=== PATIENT | female | born 1955 | race Caucasian/White ===

== ENCOUNTER 2021-06-03 12:14 | Observation (INO) | payer OTHER ==
--- OUTSIDE RECORDS SUMMARY | 2021-06-03 12:17 | XMS REPORT | Continuity of Care Document ---
:1955 Author Organization Formerly [facility] t Address [address] [place] [address] Dr. Ware [address] [place] [id number] Care Team Providers Name Role Phone Unavailable Unavailable Unavailable Problems This patient has no known problems. Allergies, Adverse Reactions, Alerts This patient has no known allergies or adverse reactions. Medications This patient has no known medications. Procedures This patient has no known procedures. Results Test Description Test Time Test Comments Results Result [facility] e Comments Low dose CT lung 2018-06-18 CLINICAL INDICATION: screening 13:50:27 Z72.0 Tobacco useMODALITY: [employer] [address] (Iterative dose reduction technique is used).TECHNIQUE: Unenhanced helical scans through the chest were performed.Computed Tomography Dose Index (CDTI): 6.5 mGy.IMPRESSION:1. Subpleural nodule of the right lung on image 20 measuring 5 mm. In a high risk patient an optional 12-month follow-up study may be obtained based on Fleischner Society criteria.2. Calcified right hilar lymph nodes and calcified granuloma of the right lower lobe as well as the lingula consistent with prior granulomatous disease.FINDINGS:COMPARI SON: NoneCalcified granuloma of the right lower lung. Tiny calcified granuloma of the lingula on image 55. Subpleural nodule measuring 5 mm of the right lung on image 20. The remainder of the lungs are clear.There is no pleural effusion.There is no evidence of suspicious mediastinal, hilar or axillary lymphadenopathy. Atheromatous calcification of the aorta and coronary vessels. Calcified lymph nodes in the right hilumThe thyroid is unremarkable.Mild degenerative changes of the skeleton.PQRS 436: [id number] (For official use only.) Mammo Digital 2018-06-18 CLINICAL INDICATION: Mammography 12:37:17 Z12.39 Encounter for Screening [facility] screening for malignant neoplasm of breastTECHNIQUE: Digital acquisition of the breasts is performed on the ACR accredited Full Field Digital Mammography Unit. Computer Assisted Detection (CAD) is then accomplished using [employer]. FINDINGS:COMPARISON STUDY: There are no prior mammographic studies available for comparison. There are scattered fibroglandular tissues in both breasts.No dominant mass, skin thickening, architectural distortion or suspicious microcalcifications are noted. IMPRESSION:No evidence of malignancy. RECOMMENDATION: Follow up screening mammogram.Category: BIRADS 1 - Negative. For internal use only. N:12
--- NOTE | 2021-06-03 13:59 | RAD REPORT ---
EXAM DESCRIPTION: CT - Head Brain Wo Cont - 06/03/2021 1:51 pm CLINICAL HISTORY: Confusion;Dizziness COMPARISON: No comparisons TECHNIQUE: All CT scans are performed using dose optimization technique as appropriate and may inclu de automated exposure control or mA/KV adjustment according to patient size. FINDINGS: No intracranial hemorrhage, hydrocephalus or extra-axial fluid collection.No areas of brai n edema or evidence of midline shift. The paranasal sinuses and mastoids are clear. The calvarium is intact. IMPRESSION: No acute intracranial abnormality.
--- NOTE | 2021-06-03 14:23 | RAD REPORT ---
EXAM DESCRIPTION: RAD - Chest Single View - 06/03/2021 2:06 pm CLINICAL HISTORY: PALPITATIONS COMPARISON: No comparisons FINDINGS: No evidence of edema or pneumonia. The heart size is within normal limits.No acute osseous abnormality. No significant pleural effusions or pneumothorax. IMPRESSION: No acute cardiopulmonary disease.
[2021-06-03 15:29] LABS: Absolute Lymphocytes (CBC) 2.1 K/uL (0.7-4.9); Basophils % 0.6 % (0-1.3); Hematocrit 36.1 % (36.0-45.0); Lymphocytes % 27.9 % (15.3-44.8); MPV 7.3 fL (7.6-11.3); RBC Red Blood Cell Count 3.84 M/uL (3.86-4.86)
[2021-06-03 15:34] LABS: Protime INR 0.89
[2021-06-03 15:56] LABS: ALT/SGPT 52 U/L (12-78); AST/SGOT 26 U/L (15-37); Albumin 4.3 g/dL (3.4-5.0); Alkaline Phosphatase 120 U/L (45-117); BUN Blood Urea Nitrogen 10 mg/dL (7-18); Bicarbonate 26 mmol/L (21-32); Bilirubin Direct 0.1 mg/dL (0-0.2); Bilirubin Total 0.4 mg/dL (0.2-1.0); Glucose Level 91 mg/dL (74-106); Magnesium 1.9 mg/dL (1.8-2.4); NT PRO-BNP 100 pg/mL (<125); Potassium 4.1 mmol/L (3.5-5.1); Protein, Total 7.8 g/dL (6.4-8.2); Sodium Level 124 mmol/L (136-145); Troponin (Emerg Dept Use Only) 0.12 ng/mL (0.0-0.045)
--- NOTE | 2021-06-03 17:30 | RAD REPORT ---
EXAM DESCRIPTION: MRI - MRA Neck W/Wo Cont - 06/03/2021 5:21 pm CLINICAL HISTORY: Expressive aphasia; Dizziness COMPARISON: No comparisons FINDINGS: The carotid systems are patent bilaterally. The vertebral arteries are patent. No hemodyna mically significant stenosis identified. No evidence of avascular dissection. IMPRESSION: No hemodynamically significant stenosis within the neck.
--- NOTE | 2021-06-03 17:35 | RAD REPORT ---
EXAM DESCRIPTION: MRI - Brain W/Wo Cont - 06/03/2021 5:21 pm CLINICAL HISTORY: Expressive aphasia; Dizziness COMPARISON: MRA Head Wo Cont dated 06/03/2021 FINDINGS: No acute intracranial hemorrhage. No mass effect or midline shift. No diffusion restrictio n is identified to suggest acute acute infarct. No significant white matter disease identified. No ab normal enhancement. IMPRESSION: No acute intracranial abnormality. Specifically, no evidence of acute infarct.
--- NOTE | 2021-06-03 17:35 | RAD REPORT ---
EXAM DESCRIPTION: MRI - MRA Head Wo Cont - 06/03/2021 5:21 pm CLINICAL HISTORY: Expressive aphasia;Dizziness COMPARISON: No comparisons FINDINGS: The anterior circulation is intact. No aneurysm, occlusion or stenosis. The posterior circ ulation is intact as well. The vertebral arteries are codominant. IMPRESSION: Unremarkable MRA of the head.
--- NOTE | 2021-06-03 17:56 | EDPHYS ---
Physician Documentation [facility] Name: Phuong Mcfarlane Age: 66 yrs Sex: Female : 1955 Arrival Date: 06/03/2021 Time: 12:16 Bed 11 Private MD: ED Physician Leonardo Jo HPI: 06/03 13:51 This 66 yrs old Female presents to ER via Ambulatory with complaints of High pm1 Blood Pressure, Confusion-Memory Issue. 13:51 The patient presents to the emergency department with Dizziness and feeling difficulty pm1 expressing herself, forgetting words. Onset: The symptoms/episode began/occurred Yesterday at 1600 and today at 1100. Context: occurred at home, occurred while the patient was cooking today. Associated signs and symptoms: Pertinent positives: Palpitations, Pertinent negatives: Chest pain and shortness of breath. Severity of symptoms: in the emergency department the symptoms have resolved Pain is currently a 0 / 10. Patient's baseline: Neuro: alert and fully oriented, Motor: no deficits, Ambulation: walks without assistance, Speech: normal. Current symptoms: Currently, the patient is not experiencing any symptoms. The patient has not experienced similar symptoms in the past. The patient has not recently seen a physician. Historical: - Allergies: 13:36 Lamisil; ss - Home Meds: 13:36 metoprolol tartrate 25 mg Oral tab 1 tab once daily [Active]; lisinopril 10 mg Oral tab ss 1 tab once daily [Active]; - PMHx: 13:36 HTN; ss - Immunization history:: Adult Immunizations up to date, Client reports receiving the 2nd dose of the Covid vaccine, Date received: December 16, 2020. - Social history:: Smoking status: Patient reports the use of cigarette tobacco products, smokes one pack cigarettes per day. ROS: 13:51 Constitutional: Negative for fever, chills, and weight loss, Skin: Negative for injury, pm1 rash, and discoloration. 13:51 ENT: Negative for injury, pain, and discharge, Neck: Negative for injury, pain, and swelling, Respiratory: Negative for shortness of breath, cough, wheezing, and pleuritic chest pain. 13:51 Abdomen/GI: Negative for abdominal pain, nausea, vomiting, diarrhea, and constipation, Back: Negative for injury and pain, MS/Extremity: Negative for injury and deformity. 13:51 Eyes: Positive for Difficulty with focusing yesterday. No visual disturbances today, Negative for pain. 13:51 Cardiovascular: Positive for palpitations, Today, Negative for chest pain. 13:51 Neuro: Positive for dizziness, Forgetfulness, Negative for headache, numbness, tingling, weakness. 13:51 All other systems are negative. Exam: 13:51 Constitutional: This is a well developed, well nourished patient who is awake, alert, pm1 and in no acute distress. Head/Face: Normocephalic, atraumatic. 13:51 Skin: Warm, dry with normal turgor. Normal color with no rashes, no lesions, and no evidence of cellulitis. MS/ Extremity: Pulses equal, no cyanosis. Neurovascular intact. Full, normal range of motion. 13:51 Eyes: Exam is negative for acute changes, Extraocular movements: intact throughout, Conjunctiva: no acute changes, no injection, Sclera: no acute changes, icterus, is not appreciated. 13:51 ENT: Exam is negative for acute changes, Mouth: no acute changes, Lips: normal, Oral mucosa: normal, pink and intact, moist. 13:51 Cardiovascular: Rate: normal, Rhythm: regular, Pulses: no pulse deficits are appreciated. 13:51 Respiratory: Exam negative for acute changes, respiratory distress, shortness of breath, Breath sounds: are clear throughout. 13:51 Abdomen/GI: Exam negative for acute changes, Palpation: abdomen is soft and non-tender, in all quadrants. 13:51 Neuro: Exam negative for acute changes, Orientation: is normal, Mentation: is normal, Cranial nerves: CN II- XII are normal as tested, Cerebellar function: normal finger to nose testing, heel to hargrove testing is normal, Motor: is normal, moves all fours, Sensation: is normal, no obvious gross deficits. Vital Signs: 13:30 BP 195 / 73; Pulse 73; Resp 15; Temp 98.3; Pulse Ox 100% on R/A; Weight 56.7 kg; Height iw 0 ft. 1 in. (2.54 cm); Pain 0/10; 18:11 BP 206 / 97; Pulse 79; Resp 18; Pulse Ox 99% on R/A; ss 19:30 BP 171 / 62; Pulse 68; Resp 18; Pulse Ox 98% ; em 13:30 Body Mass Index 83754.50 (56.70 kg, 2.54 cm) iw MDM: 14:19 Patient medically screened. pm1 17:53 Data reviewed: vital signs. Data interpreted: Pulse oximetry: on room air is 100 %. pm1 Interpretation: normal. Counseling: I had a detailed discussion with the patient and/or guardian regarding: the historical points, exam findings, and any diagnostic results supporting the discharge/admit diagnosis, lab results, radiology results, the need for further work-up and treatment in the hospital. 17:55 ED course: Patient MRI results reviewed. Patient will now be given Lovenox. pm1 18:07 Physician consultation: Martell KEN was contacted at 18:07, regarding admission, pm1 patient's condition, and will see patient. 06/03 13:42 Order name: Basic Metabolic Panel; Complete Time: 15:59 pm1 06/03 13:42 Order name: CBC with Diff; Complete Time: 15:56 pm1 06/03 13:42 Order name: LFT's; Complete Time: 15:59 pm1 06/03 13:42 Order name: Magnesium; Complete Time: 15:59 pm1 06/03 13:42 Order name: NT PRO-BNP; Complete Time: 15:59 pm1 06/03 13:42 Order name: PT-INR; Complete Time: 15:56 pm1 06/03 13:42 Order name: CT Head Brain wo Cont; Complete Time: 14:17 pm1 06/03 13:42 Order name: Troponin (emerg Dept Use Only); Complete Time: 15:59 pm1 06/03 16:00 Order name: COVID-19 : Document "Date of Symptom Onset" if Symptomatic. pm1 06/03 19:34 Order name: COVID-19 : Document "Date of Symptom Onset" if Symptomatic. bb 06/03 19:40 Order name: CORONAVIRUS ED[facility] 06/03 21:46 Order name: SARS-COV-2 RT PCR [facility] 06/03 22:18 Order name: Osmolality, Serum ED[facility] 06/04 01:37 Order name: Troponin I ED[facility] 06/03 13:42 Order name: XRAY Chest (1 view); Complete Time: 14:28 pm1 06/03 13:42 Order name: EKG; Complete Time: 13:43 pm1 06/03 13:42 Order name: Cardiac monitoring; Complete Time: 19:12 pm1 06/03 13:42 Order name: EKG - Nurse/Tech; Complete Time: 19:11 pm1 06/03 13:42 Order name: IV Saline Lock; Complete Time: 15:25 pm1 06/03 13:42 Order name: Labs collected and sent; Complete Time: 15:25 pm1 06/03 14:08 Order name: MRA Head Wo Cont; Complete Time: 17:44 EDMS 06/03 14:33 Order name: MRA Neck W/Wo Cont; Complete Time: 17:33 EDMS 06/03 14:33 Order name: Brain W/Wo Cont; Complete Time: 17:44 EDMS 06/03 13:42 Order name: O2 Per Protocol; Complete Time: 19:11 pm1 06/03 13:42 Order name: O2 Sat Monitoring; Complete Time: 19:11 pm1 Administered Medications: 18:47 Drug: Lovenox (enoxaparin) 1 mg/kg Route: Sub-Q; Site: abdomen; ap3 19:38 Follow up: Response: No adverse reaction em 18:48 Drug: Aspirin 325 mg Route: PO; ap3 19:38 Follow up: Response: No adverse reaction em 19:32 Drug: Lopressor (metoprolol TARTRATE)) 25 mg Route: PO; em 19:32 Drug: Lopressor (metoprolol) 2.5 mg Route: IVP; Site: right antecubital; em 19:37 Not Given (Physician Discretion): Lopressor (metoprolol) 5 mg IVP once; Hold for SBP em <100 or HR <60. Disposition Summary: 06/04/21 01:59 Transfer Ordered Transfer Location: Other Acute Care Facility cp Reason: Higher level of care cp Condition: Stable(06/04/21 01:59) cp Problem: new(06/04/21 01:59) cp Symptoms: have improved(06/04/21 01:59) cp Accepting Physician: DR Brad Arriaza(06/04/21 04:57) mw Diagnosis - Non ST elevation CT cp - Palpitations(06/04/21 01:59) cp Forms: - Medication Reconciliation Form cp - SBAR form cp Addendum: 06/06/2021 07:11 Co-signature as Attending Physician, Leonardo Jo MD I agree with the assessment and k dr plan of care. Signatures: Dispatcher [employer] EDWV Karen Ovalle, RN RN Leonardo Bourne MD MD [facility] Roger Mackenzie, HONG RN em Isabela Gonzales RN RN ss Larisa, Cirilo, PA PA cp Marcus Jane, BREAD OVEN OPERATOR BREAD OVEN OPERATOR pm1 Tayler Garcia RN RN ap3 Corrections: (The following items were deleted from the chart) 06/03 14:08 13:47 MR STROKE PROTOCOL+MRI.RAD.BRZ ordered. EDWV EDMS 06/04 01:56 06/03 17:55 Inpatient Admission pm1 cp 06/04 01:56 06/03 17:55 Martell Oh pm1 cp 06/04 01:56 06/03 17:55 Telemetry/MedSurg (Inpatient) pm1 cp 06/04 01:56 06/03 17:55 Stable pm1 cp 06/04 01:56 06/03 17:55 new pm1 cp 06/04 01:56 06/03 17:55 have improved pm1 cp 06/04 01:56 06/03 17:55 Standard pm1 cp 06/04 01:56 06/03 17:55 pm1 cp 06/04 01:56 06/03 17:55 Palpitations pm1 cp 06/04 01:56 06/03 17:55 NSTEMI pm1 cp 06/04 04:57 01:59 DR Brad Arriaza [facility]
--- NOTE | 2021-06-03 17:56 | ER ---
Nurse's Notes [facility] Name: Phuong Mcfarlane Age: 66 yrs Sex: Female : 1955 Arrival Date: 06/03/2021 Time: 12:16 Bed 11 Private MD: Diagnosis: Non ST elevation [place];Palpitations Presentation: 06/03 13:30 Chief complaint: Patient states: Pt reports difficulty focusing eyes yesterday, today ss had brief episode of unable to think clearly and remember friend's name around 11am. Reports she felt like her memory was gone, sxs self resolved after 1 hr. C/O lightheadedness, denies LUNA. Speech is clear, hand program counselor strong equal bilat. [place] steady. Coronavirus screen: Client denies travel out of the [place] in the last 14 days. At this time, the client does not indicate any symptoms associated with coronavirus-19. Ebola Screen: Patient negative for fever greater than or equal to 101.5 degrees Fahrenheit, and additional compatible Ebola Virus Disease symptoms Patient denies exposure to infectious person. Patient denies travel to an Ebola-affected area in the 21 days before illness onset. Initial Sepsis Screen: Does the patient meet any 2 criteria? No. Patient's initial sepsis screen is negative. Does the patient have a suspected source of infection? No. Patient's initial sepsis screen is negative. Risk Assessment: Do you want to hurt yourself or someone else? Patient reports no desire to harm self or others. Onset of symptoms was June 02, 2021 at 16:00. 13:30 Method Of Arrival: Ambulatory ss 13:30 Acuity: LICHA 3 ss Triage Assessment: 13:36 General: Appears in no apparent distress. Behavior is calm, cooperative, appropriate ss for age. Pain: Denies pain. Neuro: Level of Consciousness is awake, alert, obeys commands, Oriented to person, place, time, situation, Editor Managing Director are equal bilaterally Moves all extremities. Gait is steady, Speech is normal, Facial symmetry appears normal. Cardiovascular: No deficits noted. Respiratory: No deficits noted. Derm: No deficits noted. Historical: - Allergies: 13:36 Lamisil; ss - Home Meds: 13:36 metoprolol tartrate 25 mg Oral tab 1 tab once daily [Active]; lisinopril 10 mg Oral tab ss 1 tab once daily [Active]; - PMHx: 13:36 HTN; ss - Immunization history:: Adult Immunizations up to date, Client reports receiving the 2nd dose of the Covid vaccine, Date received: December 16, 2020. - Social history:: Smoking status: Patient reports the use of cigarette tobacco products, smokes one pack cigarettes per day. Screenin:30 Abuse screen: Denies threats or abuse. Nutritional screening: No deficits noted. em Tuberculosis screening: No symptoms or risk factors identified. Fall Risk None identified. Vital Signs: 13:30 BP 195 / 73; Pulse 73; Resp 15; Temp 98.3; Pulse Ox 100% on R/A; Weight 56.7 kg; Height iw 0 ft. 1 in. (2.54 cm); Pain 0/10; 18:11 BP 206 / 97; Pulse 79; Resp 18; Pulse Ox 99% on R/A; ss 19:30 BP 171 / 62; Pulse 68; Resp 18; Pulse Ox 98% ; em 13:30 Body Mass Index 57638.50 (56.70 kg, 2.54 cm) iw ED Course: 12:16 Patient arrived in ED. ds1 13:36 Triage completed. ss 13:36 Arm band placed on right wrist. ss 13:41 Marcus Jane NP is PHCP. pm1 13:41 Leonardo Jo MD is Attending Physician. pm1 13:51 CT Head Brain wo Cont In Process Unspecified. EDMS 14:06 XRAY Chest (1 view) In Process Unspecified. EDMS 15:25 Inserted saline lock: 20 gauge in right antecubital area, using aseptic technique. ap3 Blood collected. 17:20 MRA Head Wo Cont In Process Unspecified. EDMS 17:20 MRA Neck W/Wo Cont In Process Unspecified. EDMS 17:20 Brain W/Wo Cont In Process Unspecified. EDMS 17:53 Martell Oh PA is Hospitalizing Provider. pm1 19:11 Roger Mackenzie, RN is Primary Nurse. em 19:30 No provider procedures requiring assistance completed. Patient did not have IV access em during this emergency room visit. Administered Medications: 18:47 Drug: Lovenox (enoxaparin) 1 mg/kg Route: Sub-Q; Site: abdomen; ap3 19:38 Follow up: Response: No adverse reaction em 18:48 Drug: Aspirin 325 mg Route: PO; ap3 19:38 Follow up: Response: No adverse reaction em 19:32 Drug: Lopressor (metoprolol TARTRATE)) 25 mg Route: PO; em 19:32 Drug: Lopressor (metoprolol) 2.5 mg Route: IVP; Site: right antecubital; em 19:37 Not Given (Physician Discretion): Lopressor (metoprolol) 5 mg IVP once; Hold for SBP em <100 or HR <60. Outcome: 17:55 Decision to Hospitalize by Provider. pm1 06/04 01:59 ER care complete, transfer ordered by . 04:57 Patient left the ED. mw Signatures: Dispatcher [employer] Karen Tierney RN RN Roger Mackenzie RN RN Calli Ocampo ds1 Jeane Woo RN RN Isabela Gonzales RN RN ss Cirilo Peres PA PA cp Marinas, Patrick, LOADER OPERATOR LOADER OPERATOR pm1 Tayler Garcia RN RN ap3 Corrections: (The following items were deleted from the chart) 06/03 18:06 13:30 BP 195 / ???; Pulse 73bpm; Resp 15bpm; Pulse Ox 100% RA; Temp 98.3F; 56.7 kg; iw Height 0 ft. 1 in.; BMI: 3543; Pain 0/10; ss
[2021-06-03] MEDS ORDERED: ASPIRIN 325 MG TAB ONE (19:05)
[2021-06-03] MEDS ORDERED: ENOXAPARIN 60 MG/0.6 ML SQ ONE (19:05)
[2021-06-03] MEDS ORDERED: ENOXAPARIN 100 MG/ML SYR SQ SCH (19:39)
[2021-06-03] MEDS ORDERED: ASPIRIN 81 MG CHEWABLE TABLET PO ONE (19:39)
[2021-06-03] MEDS ORDERED: ONDANSETRON 4 MG/2 ML VIAL IV PRN (19:39)
[2021-06-03] MEDS ORDERED: HYDRALAZINE HCL 20 MG/ML VIAL IV PRN (19:39)
[2021-06-03] MEDS ORDERED: ACETAMINOPHEN 500 MG TAB PO PRN (19:39)
[2021-06-03] MEDS ORDERED: METOPROLOL TAR 25 MG TAB ONE (19:40)
[2021-06-03] MEDS ORDERED: METOPROLOL TARTRATE 5 MG/5 ML INJ IV ONE (19:40)
[2021-06-03] MEDS ORDERED: lisinopriL 10 MG TAB PO SCH (21:00)
[2021-06-03] MEDS ORDERED: ATORVASTATIN 40 MG TAB PO SCH (21:00)
--- NOTE | 2021-06-03 21:16 | P.HP ---
Certification for Inpatient Patient admitted to: Observation With expected LOS: <2 Midnights Patient will require the following post-hospital care: None Practitioner: I am a practitioner with admitting privileges, knowledge of patient current condition, hospital course, and medical plan of care. Services: Services provided to patient in accordance with Admission requirements found in Title 42 Section 412.3 of the Code of Federal Regulations Patient History Date of Service: 06/03/21 Reason for admission: hypertensive urgency History of Present Illness: Ms. Mcfarlane is a 66 yo F with HTN who presents with an episode of confusion. She says she as in the kitchen when she began to have word finding difficulty, trouble focusing, and felt dizzy and off balance. She says she also felt palpitations and nausea. She has had similar episodes in the past. BP was 200/100 on arrival. Na 124, Cl 91, trop 0.12. Smokes 1/2 ppd and drinks 3-4 glasses of wine daily. CT head and MRI brain without acute findings. CXR wnl. Allergies terbinafine [From Lamisil] Allergy (Verified 06/03/21 19:32) Rash Home Medications: Lisinopril [Zestril] 10 mg PO DAILY 06/03/21 Metoprolol Succinate 25 mg PO DAILY 06/03/21 - Past Medical/Surgical History -: HTN -: tubal ligation -: oral surgery - Family History Mother -: Heart disease, Lung disease Father -: Heart disease - Social History Smoking Status: Heavy Tobacco smoker (>10 cigarettes/day) Smoking therapy provided: Yes Patient receptive to therapy: No Alcohol use: Yes CD- Drugs: No Caffeine use: Yes Place of Residence: Home Review of Systems 10-point ROS is otherwise unremarkable Cardiovascular: Palpitations Neurological: Confusion Physical Examination - Physical Exam General: Alert, In no apparent distress HEENT: Atraumatic, PERRLA, Mucous membr. moist/pink, EOMI, Sclerae nonicteric Neck: Supple, 2+ carotid pulse no bruit, No LAD, Without JVD or thyroid abnormality Respiratory: Clear to auscultation bilaterally, Normal air movement Cardiovascular: Regular rate/rhythm, Normal S1 S2 Gastrointestinal: Normal bowel sounds, No tenderness Musculoskeletal: No clubbing Integumentary: No rashes Neurological: Normal gait, Normal speech, Normal strength at 5/5 x4 extr, Normal tone, Normal affect Lymphatics: No axilla or inguinal lymphadenopathy - Studies Laboratory Data (last 24 hrs) 06/03/21 15:20: PT 10.2, INR 0.89 06/03/21 15:20: WBC 7.60, Hgb 12.7, Hct 36.1, Plt Count 271 06/03/21 15:20: Sodium 124 L, Potassium 4.1, BUN 10, Creatinine 0.63, Glucose 91, Magnesium 1.9, Total Bilirubin 0.4, AST 26, ALT 52, Alkaline Phosphatase 120 H Assessment and Plan - Problems (Diagnosis) (1) HTN (hypertension) Current Visit: Yes Status: Chronic Qualifiers: Hypertension type: primary hypertension Qualified Code(s): I10 - Essential (primary) hypertension (2) Elevated troponin Current Visit: Yes Status: Acute (3) Hyponatremia Current Visit: Yes Status: Chronic - Plan cardiology consulted, on telemetry repeat EKG in the AM, trend troponin BP improving, reconcile and continue home medications, PRN IV hydralazine thyroid and lipid panel pending sodium workup pending, levels have been low for the past 6 months according to the patient daily ASA, statin full dose lovenox given in ED smoking cessation counseling Discharge Plan: Home Plan to discharge in: 24 Hours - Advance Directives Does patient have a Living Will: No Does patient have a Durable POA for Healthcare: No - Code Status/Comfort Care Code Status Assessed: Yes (full code ) Critical Care: No Time Spent Managing Pts Care (In Minutes): 70
[2021-06-03 21:46] VITALS: BMI 21.4
[2021-06-03] MEDS ORDERED: ATORVASTATIN 20 MG TAB ONE (23:00)
[2021-06-04 00:02] VITALS: BP 148/85; TEMP 98.2
[2021-06-04 00:30] VITALS: O2SAT 98
--- NOTE | 2021-06-04 04:45 | P.DS ---
Admission Date: 06/03/21 Discharge Date: 06/04/21 Disposition: TRANSFER TO [facility] Discharge Condition: GOOD Reason for Admission: hypertensive urgency - Problems (1) HTN (hypertension) Current Visit: Yes Status: Chronic Qualifiers: Hypertension type: primary hypertension Qualified Code(s): I10 - Essential (primary) hypertension (2) Elevated troponin Current Visit: Yes Status: Acute (3) Hyponatremia Current Visit: Yes Status: Chronic Brief History of Present Illness: Ms. Mcfarlane is a 66 yo F with HTN who presents with an episode of confusion. She says she as in the kitchen when she began to have word finding difficulty, trouble focusing, and felt dizzy and off balance. She says she also felt palpitations and nausea. She has had similar episodes in the past. BP was 200/100 on arrival. Na 124, Cl 91, trop 0.12. Smokes 1/2 ppd and drinks 3-4 glasses of wine daily. CT head and MRI brain without acute findings. CXR wnl. Hospital Course: Patient being transferred to [facility] for heart catheterization. Patient is stable to transfer. Repeat troponin trending down. Asymptomatic. BP stable, and improving. Nonspecific changes on EKG. Received full dose lovenox in ED. Vital Signs/Physical Exam: Temp Pulse Resp BP Pulse Ox 98.2 F 67 16 148/85 H 100 06/04/21 00:00 06/04/21 00:00 06/04/21 00:00 06/04/21 00:00 06/04/21 00:00 Laboratory Data at Discharge: WBC 7.60 K/uL (4.3-10.9) 06/03/21 15:20 Hgb 12.7 g/dL (12.0-15.0) 06/03/21 15:20 Hct 36.1 % (36.0-45.0) 06/03/21 15:20 Plt Count 271 K/uL (152-406) 06/03/21 15:20 PT 10.2 SECONDS (9.5-12.5) 06/03/21 15:20 INR 0.89 06/03/21 15:20 Sodium 124 mmol/L (136-145) L 06/03/21 15:20 Potassium 4.1 mmol/L (3.5-5.1) 06/03/21 15:20 BUN 10 mg/dL (7-18) 06/03/21 15:20 Creatinine 0.63 mg/dL (0.55-1.3) 06/03/21 15:20 Glucose 91 mg/dL (74-106) 06/03/21 15:20 Magnesium 1.9 mg/dL (1.8-2.4) 06/03/21 15:20 Total Bilirubin 0.4 mg/dL (0.2-1.0) 06/03/21 15:20 AST 26 U/L (15-37) 06/03/21 15:20 ALT 52 U/L (12-78) 06/03/21 15:20 Alkaline Phosphatase 120 U/L (45-117) H 06/03/21 15:20 Troponin I 0.11 ng/mL (0.0-0.045) H 06/04/21 00:10 Home Medications: Lisinopril [Zestril] 10 mg PO DAILY 06/03/21 Metoprolol Succinate 25 mg PO DAILY 06/03/21 Followup: NONE,NONE [Primary Care Provider] -
[2021-06-04] MEDS ORDERED: ENOXAPARIN 40 MG/0.4 ML SQ SCH (06:00)
[2021-06-04] MEDS ORDERED: METOPROLOL TAR 25 MG TAB PO SCH (06:00)
[2021-06-04] MEDS ORDERED: ENOXAPARIN 60 MG/0.6 ML SQ SCH (07:00)
[2021-06-04] MEDS ORDERED: ASPIRIN EC 81 MG TAB PO SCH (09:00)
[2021-06-04] MEDS ORDERED: lisinopriL 10 MG TAB PO SCH (09:00)
== END 2021-06-04 04:57 | disposition short-term general hospital (02) ==
LOC: ER 12:14 → ERHOLD 18:29
PROVIDERS: ADMIT Family Medicine; ATTEND Family Medicine
DX: I21.4 Non-ST elevation (NSTEMI) myocardial infarction (principal); I10 Essential (primary) hypertension; R00.2 Palpitations; E87.1 Hypo-osmolality and hyponatremia; F17.210 Nicotine dependence, cigarettes, uncomplicated; Z71.6 Tobacco abuse counseling; Z88.8 Allergy status to other drugs, medicaments and biological substances; Z82.49 Family history of ischemic heart disease and other diseases of the circulatory system; Z20.822 Contact with and (suspected) exposure to COVID-19
CPT/HCPCS: 93005; 85025; 80048; 36415; 83735; 85610; 80076; 84484 ×2; 83880; 83930; 70450; 71045; 70553; 70544; 70549; 94760; 96372; 96374; 99284; U0003; A9577; J1650; G0378 ×3